=== PATIENT | female | born 1980 ===

== ENCOUNTER 2024-08-29 06:45 | Outpatient (CLI) | payer OTHER ==
[~2024-08-29] VITALS: Ht 157.5 cm; Wt 92.1 kg
[2024-08-29] MEDS ORDERED: MACROBID 100 M100 MG (07:51)
[2024-08-29] MEDS ORDERED: MAXFE CAPLET1 EAC1 PO (07:52)
[2024-08-29] MEDS ORDERED: NOXIFOL-D32500 UNIT (07:56)
[2024-08-29 08:09] VITALS: BP 114/77
[2024-08-29 08:42] LABS: INR 1.02; PARTIAL THROMBOPLASTIN TIME 29.3 SECONDS (22.0-34.0); PROTHROMBIN TIME 11.1 SECONDS (9.0-11.5)
[2024-08-29 08:50] LABS: ALBUMIN 3.8 gm/dL (3.4-5.0); BILIRUBIN TOTAL 0.41 mg/dL (0.3-1.2); CREATININE SERUM 0.61 mg/dL (0.55-1.02); GFR 107.56; GLOBULINA 3.3 G/DL (2.4-3.5); POTASSIUM 4.15 mEq/L (3.5-5.1); TOTAL PROTEIN 7.1 gm/dL (6.4-8.2)
[2024-08-29 08:54] LABS: HEMATOCRIT 49.3 % (34.1-44.9); HEMOGLOBIN 16.1 g/dL (11.2-15.7); PLATELET COUNT 171 K/uL (163-369); RED BLOOD COUNT 5.74 M/uL (3.93-5.22)
[2024-08-29 08:55] LABS: BASO % 0.4 % (0.1-1.2); EOS # 0.11 (0.04-0.54); EOS % 1.3 % (0.7-7.0); LYMPH # 2.27 (1.18-3.74); LYMPH % 27.7 % (19.3-53.1); MONO % 4.9 % (4.7-12.5); NEUT # 5.36 (1.56-6.13); NEUT % 65.3 % (34.0-71.1)
[2024-08-29 08:56] LABS: PH,URINE 5.5 (5.0-8.0); URINE APPEARANCE Clear; URINE BILIRRUBIN Negative (NEGATIVE); URINE BLOOD Negative; URINE COLOR Dark Yellow; URINE GLUCOSE Negative (NEGATIVE); URINE KETONE Negative (NEGATIVE); URINE LEUKOCYTE Negative; URINE NITRATE Negative; URINE PROTEIN Negative (NEGATIVE); URINE UROBILINOGEN 0.2 E.U./dl
[2024-08-29 08:57] LABS: URINE EPITHELIAL CELLS 17.8 uL (0.0-38.8); URINE RBC 12.8 uL (0.0-20.8); URINE WBC 4.2 uL (0.0-23.2)
== END 2024-08-29 07:00 | disposition home or self-care (01) ==
LOC: RAD 06:45 → ADM 08:15 → CIR.AMB 09-04 08:15 → EDSTATUS 09-04 08:15 → CIR.AMB 09-11 05:17
PROVIDERS: ATTEND Obstetrics & Gynecology
DX: N84.0 Polyp of corpus uteri (principal); Z01.818 Encounter for other preprocedural examination